=== PATIENT | female | born 1985 | race Caucasian/White ===

== ENCOUNTER 2018-12-16 15:19 | Emergency (ER) | payer OTHER ==
[2018-12-16 15:24] VITALS: BP 103/58; PULSE 83; TEMP 98.1; BMI 28.4
--- NOTE | 2018-12-16 17:35 | PDOC ---
History of Present Illness - History of Present Illness Initial Comments: 12/16/18 17:20 This is a 33 year old female with PMH significant for left arm DVT in 2014. She presents to the ER with complaints of tenderness and oozing from the incision site of the hysterectomy she had on 10/15/18. She first noticed mild erythema around the site 2 weeks ago, and yellowish discharge 1 week ago. She has also felt intermittent chills over the past week. She endorses associated mild headache and dizziness as well. She denies any fever, nausea, vomiting, diarrhea, constipation, SOB, chest pain , dysuria, urinary urgency, headaches, or dizziness. She was diagnosed with uterine polyps in August 2018, and her hysterectomy was performed without any complications. She is not currently on any AC, and she takes sertraline for depression. <Pranay Mercado - Last Filed: 12/16/18 18:55> <Belkys Read - Last Filed: 12/17/18 20:20> - General Chief Complaint: Wound Stated Complaint: WOUND Time Seen by Provider: 12/16/18 16:59 Past History - Past Medical History COPD: No Thyroid Disease: No Other medical history: DVT - Surgical History Cholecystectomy: Yes - Psycho Social/Smoking Cessation Hx Smoking History: Never smoked Information on smoking cessation initiated: No Hx Alcohol Use: No Drug/Substance Use Hx: No <Pranay Mercado - Last Filed: 12/16/18 18:55> <Belkys Read - Last Filed: 12/17/18 20:20> - Past Medical History Allergies/Adverse Reactions: Allergies Allergy/AdvReac Type Severity Reaction Status Date / Time No Known Allergies Allergy Verified 12/16/18 15:24 Home Medications: Ambulatory Orders Doxycycline Hyclate 100 mg PO BID 10 Days #20 tablet 12/16/18 Review of Systems - Review of Systems Constitutional: Yes: See HPI HEENTM: Yes: See HPI Respiratory: Yes: See HPI Cardiac (ROS): Yes: See HPI ABD/GI: Yes: See HPI <Pranay Mercado - Last Filed: 12/16/18 18:55> *Physical Exam - Vital Signs Last Vital Signs Temp Pulse Resp BP Pulse Ox 98.1 F 83 19 103/58 L 100 12/16/18 15:22 12/16/18 15:22 12/16/18 15:22 12/16/18 15:22 12/16/18 15:22 - Physical Exam Comments: 12/16/18 17:45 AOx3 Head: GOPAL, EMO intact Lungs: Clear B/L GI: Soft, mild suprapubic tenderness, hysterectomy scar in suprapubic region with no active discharge, mild erythema, no swelling Extremities: No edema Neuro: Motor 5/5 B/L sensations intact B/L CN II-XII intact <Pranay Mercado - Last Filed: 12/16/18 18:55> - Vital Signs Last Vital Signs Temp Pulse Resp BP Pulse Ox 98.1 F 83 19 103/58 L 100 12/16/18 15:22 12/16/18 15:22 12/16/18 15:22 12/16/18 15:22 12/16/18 15:22 <Belkys Read - Last Filed: 12/17/18 20:20> ED Treatment Course - LABORATORY CBC & Chemistry Diagram: 12/16/18 18:04 12/16/18 18:04 <Pranay Mercado - Last Filed: 12/16/18 18:55> - LABORATORY CBC & Chemistry Diagram: 12/16/18 18:04 12/16/18 18:04 - ADDITIONAL ORDERS Additional order review: 12/16/18 18:04 RBC 5.33 H MCV 69.5 L MCHC 32.1 RDW 15.2 MPV 8.2 Neutrophils % 48.3 Lymphocytes % 39.0 Monocytes % 10.5 H Eosinophils % 1.7 Basophils % 0.5 <Belkys Read - Last Filed: 12/17/18 20:20> Medical Decision Making - Medical Decision Making 12/16/18 17:43 - Since patient endorses chills as well as new pain post op with discharge, must r/o any infectious process - CBC/CMP - UA - CT AP with IV contrast 12/16/18 18:54 - Labs reviewed, normal WBC - Taken for CT - Signed out to night team <Pranay Mercado - Last Filed: 12/16/18 18:55> Discharge - Discharge Information Problems reviewed: Yes <Pranay Mercado - Last Filed: 12/16/18 18:55> - Discharge Information Problems reviewed: Yes <Belkys Read - Last Filed: 12/17/18 20:20> - Discharge Information Clinical Impression/Diagnosis: Wound infection after surgery Condition: Stable Disposition: HOME - Additional Discharge Information Prescriptions: Doxycycline Hyclate 100 mg PO BID 10 Days #20 tablet - Follow up/Referral Referrals: Dejuan Jonas [Primary Care Provider] - - Patient Discharge Instructions Patient Printed Discharge Instructions: DI for Cellulitis -- Adult Additional Instructions: You have been seen in the Emergency Department for abdominal pain and drainage from your surgical incision site. Your CT scan and labs show no signs concerning for a severe infection. The wound does show some signs indicating a possible infection. We have sent a prescription for antibiotics to your pharmacy - take them as prescribed, two times a day, for 10 days, and make sure you finish all of them even if you are feeling better. If you experience pain, you can take Tylenol or Ibuprofen as directed on the medication bottle, but do not exceed 3g of Ibuprofen or 4g of Tylenol a day. It is important that you follow-up with your surgeon. Call the office in the morning to make a follow-up appointment for this week. Return to the ED immediately if you experience pain not controlled by over the counter medications, fever, vomiting, red streaks from the incision site, worsening pus, dizziness, or any other new or worsening symptom. - Post Discharge Activity
[2018-12-16 18:20] LABS: BASO % 0.5 % (0-2.0); EOS % 1.7 % (0-4.5); HEMOGLOBIN 11.9 GM/dL (10.7-15.3); MCH 22.3 pg (25.7-33.7); MCHC 32.1 g/dl (32.0-36.0); MEAN CELL VOLUME 69.5 fl (80-96); MEAN PLT VOLUME 8.2 fl (7.5-11.1); MONO % 10.5 % (3.8-10.2); NEUT % 48.3 % (42.8-82.8); PLATELET COUNT 274 K/MM3 (134-434); RBC 5.33 M/mm3 (3.60-5.2); RDW 15.2 % (11.6-15.6); WHITE BLOOD COUNT 7.3 K/mm3 (4.0-10.0)
--- NOTE | 2018-12-16 18:27 | PDOC ---
Documentation entered by Camila King SCRIBE, acting as scribe for Belkys Read MD. Belkys Read MD: This documentation has been prepared by the Fernando maradiaga Brenda, SCRIBE, under my direction and personally reviewed by me in its entirety. I confirm that the documentation accurately reflects all work, treatment, procedures, and medical decision making performed by me. Attending Attestation - Resident Resident Name: Pranay Mercado - ED Attending Attestation I have performed the following: I have examined & evaluated the patient, The case was reviewed & discussed with the resident, I agree w/resident's findings & plan, Exceptions are as noted - HPI HPI: 12/16/18 18:09 The patient is a 33 year old female, with a significant PMH of left arm DVT, who presents to the emergency department with 1 week of tenderness and drainage at sight of hysterectomy surgical incision ( on 10/2017). She says that upon having her hysterectomy, it healed fine at first. Patient also endorses chills. The patient denies chest pain, shortness of breath, headache and dizziness. Denies nausea, vomiting, diarrhea and constipation. Denies dysuria, frequency, urgency and hematuria. Allergies: NKA Past surgical history: on 10/28, Cholecystectomy. Hysterectomy (due to uterine polyps) Social history: Denies any tobacco use. PCP: Brenna Jonas - Physicial Exam PE: 12/16/18 18:09 GENERAL: Well-appearing, well-nourished. No apparent distress. HEENT: Normocephalic, atraumatic. PERRL, EOM intact. CARDIOVASCULAR: Normal S1, S2. Regular rate and rhythm. PULMONARY: Clear to auscultation bilaterally. ABDOMEN: (+) Both right and left ends on sight are erythematous and tender. Soft, non-distended, with tenderness to palpation n RLQ EXTREMITIES: Normal ROM in all four extremities. No gross deformities. SKIN: Warm, dry. No rash NEUROLOGICAL: No focal neurological deficits. 12/16/18 18:26 - Medical Decision Making 12/16/18 18:27 plan preg test,labs,IV fluids,ct scan 12/16/18 21:00 ct scan of abd/pel: no acute intra abdominal or pelvic pathology, no abscess there is a small amt of fluid subcutaneous, a seroma?possible sm focal infection pt placed on doxycycline BID and will follow up with her surgeon
[2018-12-16 18:40] LABS: ALBUMIN 3.9 g/dl (3.4-5.0); BILIRUBIN,TOTAL 0.3 mg/dL (0.2-1); BLOOD UREA NITROGEN 13.6 mg/dL (7-18); CREATININE 0.7 mg/dL (0.55-1.3); POTASSIUM 3.7 mmol/L (3.5-5.1); TOT PROT 7.4 g/dl (6.4-8.2)
[2018-12-16 18:58] LABS: URINE APPEARANCE CLOUDY; URINE BILIRUBIN NEGATIVE (NEGATIVE); URINE COLOR YELLOW; URINE GLUCOSE (UA) NEGATIVE (NEGATIVE); URINE KETONE NEGATIVE (NEGATIVE); URINE LEUK ESTERASE NEGATIVE (NEGATIVE); URINE NITRITE NEGATIVE (NEGATIVE); URINE PROTEIN NEGATIVE (NEGATIVE); URINE UROBILINOGEN 0.2 mg/dL (0.2-1.0)
--- NOTE | 2018-12-16 19:17 | PDOC ---
*Physical Exam - Vital Signs Last Vital Signs Temp Pulse Resp BP Pulse Ox 98.1 F 83 19 103/58 L 100 12/16/18 15:22 12/16/18 15:22 12/16/18 15:22 12/16/18 15:22 12/16/18 15:22 ED Treatment Course - LABORATORY CBC & Chemistry Diagram: 12/16/18 18:04 12/16/18 18:04 - ADDITIONAL ORDERS Additional order review: Laboratory Results 12/16/18 12/16/18 18:30 18:04 Sodium 140 Potassium 3.7 Chloride 106 Carbon Dioxide 28 Anion Gap 6 L BUN 13.6 Creatinine 0.7 Est GFR (CKD-EPI)AfAm 133.81 Est GFR (CKD-EPI)NonAf 115.45 Random Glucose 84 Calcium 9.0 Total Bilirubin 0.3 AST 12 L ALT 32 Alkaline Phosphatase 60 Total Protein 7.4 Albumin 3.9 Urine Color Yellow Urine Appearance Cloudy Urine pH 5.0 Ur Specific [place] 1.012 Urine Protein Negative Urine Glucose (UA) Negative Urine Ketones Negative Urine Blood Negative Urine Nitrite Negative Urine Bilirubin Negative Urine Urobilinogen 0.2 Ur Leukocyte Esterase Negative 12/16/18 18:04 RBC 5.33 H MCV 69.5 L MCHC 32.1 RDW 15.2 MPV 8.2 Neutrophils % 48.3 Lymphocytes % 39.0 Monocytes % 10.5 H Eosinophils % 1.7 Basophils % 0.5 Medical Decision Making - Medical Decision Making 12/16/18 19:16 Sign out received. 33yo F hx hysterectomy 10/15/[address] [place] [address] Vargas (who comes to [facility] 1x[facility]wk) presents with chills and 2wks of pain, erythema, and purulence of suprapubic surgical incision site. Concern for cellulitis vs abscess - CTAP to r /o deeper infection. If negative d/c home with doxy for cellulitis. Pt seen and assessed at bedside. Took to CT scan. Abdomen exam: well-healing suprapubic hysterectomy surgical site white base with slight surrounding erythema, no warmth, 5mm gaping on 5mm of R side of wound with minimal purulent drainage, slight dried blood on L side of wound, no active bleeding, mild TTP overlying wound, no fluctuance. soft, ND, no rebound tenderness or guarding, no CVA tenderness. Wound cx ordered for purulence. 12/16/18 20:44 CT read - of note, mild subcutaneous soft tissue stranding along lower anterior pelvis which is probably postsurgical. No signs of deeper infection. Results of CT scan printed, given to, and discussed with pt. Will dc home with kari, surgeon f/u, and PCP f/u. Return precautions given. Pt understands all dc instructions and all questions were answered. Discharge - Discharge Information Problems reviewed: Yes Clinical Impression/Diagnosis: Wound infection after surgery Condition: Stable Disposition: HOME - Admission No - Additional Discharge Information Prescriptions: Doxycycline Hyclate 100 mg PO BID 10 Days #20 tablet - Follow up/Referral Referrals: Dejuan Jonas [Primary Care Provider] - - Patient Discharge Instructions Patient Printed Discharge Instructions: DI for Cellulitis -- Adult Additional Instructions: You have been seen in the Emergency Department for abdominal pain and drainage from your surgical incision site. Your CT scan and labs show no signs concerning for a severe infection. The wound does show some signs indicating a possible infection. We have sent a prescription for antibiotics to your pharmacy - take them as prescribed, two times a day, for 10 days, and make sure you finish all of them even if you are feeling better. If you experience pain, you can take Tylenol or Ibuprofen as directed on the medication bottle, but do not exceed 3g of Ibuprofen or 4g of Tylenol a day. It is important that you follow-up with your surgeon. Call the office in the morning to make a follow-up appointment for this week. Return to the ED immediately if you experience pain not controlled by over the counter medications, fever, vomiting, red streaks from the incision site, worsening pus, dizziness, or any other new or worsening symptom. - Post Discharge Activity
== END 2018-12-16 21:15 | disposition home or self-care (01) ==
LOC: JERFT 15:19 → SUPCPDRO 15:19 → JERFT 21:15
DX: T81.41XA Infection following a procedure, superficial incisional surgical site, initial encounter (principal)
CPT/HCPCS: 36415; 74177-TC; 80053; 81003; 85025; 87070; 87186; 87205; 99283-25